=== PATIENT | female | born 1995 | race African-American/Black ===

== ENCOUNTER 2021-10-10 03:04 | Inpatient (IN) ==
[2021-10-10] MEDS ORDERED: MEPERIDINE 50 MG/1 ML VIAL IV PRN (03:34)
[2021-10-10] MEDS ORDERED: CARBOPROST TROMETHAMINE 250 MCG/ML AMP IM PRN (03:34)
[2021-10-10] MEDS ORDERED: ONDANSETRON 4 MG/2 ML VIAL IV PRN ×2 (03:34→04:56)
[2021-10-10] MEDS ORDERED: miSOPROStoL 200 MCG TABLET RECTAL PRN (03:34)
[2021-10-10] MEDS ORDERED: OXYTOCIN/LR 20 UNIT/1,000 ML BAG IV PRN (03:34)
[2021-10-10] MEDS ORDERED: TRANEXAMIC ACID 1,000 MG in SODIUM CHLORIDE 0.9% 100 ML IV PRN (03:34)
[2021-10-10] MEDS ORDERED: METHYLERGONOVINE 0.2 MG/1 ML AMP IM PRN (03:34)
[2021-10-10] MEDS ORDERED: BUTORPHANOL 2 MG/ML VIAL IV PRN (03:34)
[2021-10-10] MEDS ORDERED: OXYTOCIN/LR 20 UNIT/1,000 ML BAG IV SCH (04:00)
[2021-10-10 04:09] LABS: Basophils % 0.3 % (0.0-0.8); Eosinophils # 0.2 10*3/uL (0.0-0.87); Eosinophils % 1.6 % (0.00-10.9); Hematocrit 30.4 VOL% (35.7-47.0); Hemoglobin 9.8 GM/DL (12.0-16.0); Lymphocytes # 1.7 10*3/uL (1.4-4.0); Lymphocytes % 17.3 % (21.3-54.2); Mean Corpuscular HGB Conc 32.2 GM/DL (32-36); Mean Corpuscular Volume 87.6 FL (87-102); Mean Platelet Volume 10.2 FL (9.6-12.0); Neutrophils % 69.8 % (38.7-73.9); Platelet Count 315 T/CUMM (130-400); Red Blood Count 3.47 MC/CUMM (3.8-5.5); Red Cell Distribution Width 15.3 % (9.3-17.3); White Blood Count 9.6 T/CUMM (4-12)
[2021-10-10] MEDS: LACTATED RINGERS 1,000 ML IV SCH ×3 (04:31→08:20)
[2021-10-10 04:32] LABS: Alanine Aminotransferase 13 U/L (13-56); Albumin 2.2 G/DL (3.4-5.0); Alkaline Phosphatase 134 U/L (45-117); Aspartate Amino Transferase 12 U/L (0-37); Bilirubin,Total < 0.39 MG/DL (0.20-1.00); Blood Urea Nitrogen 6 MG/DL (7-18); Calcium 9.4 MG/DL (8.5-10.1); Carbon Dioxide 24 MMOL/L (21-32); Chloride 109 MMOL/L (98-107); Glucose 90 MG/DL (74-106); Osmolality,Calculated 276.4 MOS/KG (273-304); Potassium 4.1 MMOL/L (3.5-5.1); Sodium 140 MMOL/L (136-145); Total Protein 5.9 G/DL (6.4-8.2)
[2021-10-10] MEDS: CLINDAMYCIN INJ 900 MG/50 ML PREMIX IV SCH ×2 (04:32→10:00)
[2021-10-10] MEDS ORDERED: diphenhydrAMINE 50 MG/1 ML VIAL IV PRN ×2 (04:56)
[2021-10-10] MEDS ORDERED: NALOXONE 0.4 MG/ML VIAL IV PRN (04:56)
[2021-10-10] MEDS ORDERED: PROMETHAZINE 25 MG/1 ML VIAL IM PRN (04:56)
[2021-10-10] MEDS ORDERED: ePHEDrine 50 MG/ML VIAL IV PRN (04:56)
[2021-10-10] MEDS ORDERED: hydrOXYzine HCL 25 MG/1 ML VIAL IM PRN (04:56)
[2021-10-10] MEDS ORDERED: FAMOTIDINE 20 MG/2 ML VIAL IV PRN (04:57)
[2021-10-10] MEDS ORDERED: CITRIC ACID/SODIUM CITRATE 30 ML UDCUP PO PRN (04:57)
[2021-10-10] MEDS ORDERED: fentaNYL 2 MCG/ROPIV 0.2% EPID 100 ML EPIDURAL SCH (05:00)
[2021-10-10 09:20] LABS: Bacteria,Urine Occasional /HPF (Few); Mucus,Urine Occasional /LPF (Occasional); RBC,Urine 2 /HPF (0-4); Squamous Epithelial Cell,Urine Occasional /HPF (0-10)
[2021-10-10 09:22] LABS: Urine Appearance Clear (Clear); Urine Color Yellow (Yellow)
[2021-10-10 09:23] LABS: Bilirubin,Urine Negative (Negative); Blood, Urine Negative (Negative); Glucose,Urine (UA) Negative (Negative); Ketones,Urine Negative (Negative); Nitrite,Urine Negative (Negative); Protein,Urine Negative (Negative); Urine Urobilinogen 0.2 eU/dL (<2.0)
[2021-10-10] MEDS ORDERED: TRANEXAMIC ACID 1,000 MG/10 ML VIAL ONE (14:54)
[2021-10-10] MEDS ORDERED: OXYTOCIN/LR 30 UNIT/1,000 ML BAG IV ONE (15:30)
[2021-10-10 16:33] LABS: Cord Arterial Blood HCO3 18.5 MMOL/L; Cord Venous Blood HCO3 20.1 MMOL/L; Cord Venous Blood PCO2 47.9 MMHG; Cord Venous Blood PO2 27.4
[2021-10-10] MEDS ORDERED: BISACODYL 10 MG SUPP RECTAL PRN (18:48)
[2021-10-10] MEDS ORDERED: oxyCODONE/ACETAMINOPHEN 5-325 MG TABLET PO PRN (18:48)
[2021-10-10] MEDS ORDERED: WITCH HAZEL PADS 100/JAR TOP PRN (18:48)
[2021-10-10] MEDS ORDERED: MEASLES/MUMPS/RUBELLA VACCINE 0.5 ML VIAL SUBCUT ONE (18:48)
[2021-10-10] MEDS ORDERED: HYDROCORTISONE 2.5% RECTAL CREAM 30 GM TUBE TOP PRN (18:48)
[2021-10-10] MEDS ORDERED: ACETAMINOPHEN 325 MG TABLET PO PRN (18:48)
[2021-10-10] MEDS ORDERED: LANOLIN 50% CREAM 0.3 OZ TUBE TOP PRN (18:48)
[2021-10-10] MEDS ORDERED: BENZOCAINE 20%/MENTHOL 0.5% SPRAY 56 GM CAN TOP PRN (18:48)
[2021-10-10] MEDS: oxyCODONE/ACETAMINOPHEN 5-325 MG TABLET PO PRN (18:55)
[2021-10-10] MEDS ORDERED: RHO(D) IMMUNE GLOBULIN 300 MCG SYRINGE IM ONE (19:30)
[2021-10-10] MEDS ORDERED: OXYTOCIN/LR 20 UNIT/1,000 ML BAG IV ONE (19:30)
[2021-10-10] MEDS ORDERED: DIPH/TET/ACEL PERT BOOSTER VACCINE 0.5 ML VIAL IM ONE (19:30)
[2021-10-10] MEDS: DOCUSATE SODIUM 100 MG CAPSULE PO SCH (21:04)
[2021-10-10] MEDS: IBUPROFEN 800 MG TABLET PO PRN (21:06)
[2021-10-11] MEDS: oxyCODONE/ACETAMINOPHEN 5-325 MG TABLET PO PRN ×3 (01:43→17:50)
[2021-10-11 06:04] LABS: Basophils % 0.2 % (0.0-0.8); Eosinophils # 0.1 10*3/uL (0.0-0.87); Hemoglobin 9.4 GM/DL (12.0-16.0); Immature Granulocytes % 0.5 %; Immature Granulocytes Absolute 0.06 #; Lymphocytes # 1.9 10*3/uL (1.4-4.0); Lymphocytes % 14.6 % (21.3-54.2); Mean Corpuscular HGB Conc 32.4 GM/DL (32-36); Mean Corpuscular Volume 88.1 FL (87-102); Monocytes # 1.1 10*3/uL (0.11-0.8); Monocytes % 8.5 % (1.7-12.7); Neutrophils % 75.2 % (38.7-73.9); Platelet Count 264 T/CUMM (130-400); Red Blood Count 3.29 MC/CUMM (3.8-5.5); Red Cell Distribution Width 15.2 % (9.3-17.3); White Blood Count 12.8 T/CUMM (4-12)
[2021-10-11] MEDS: IBUPROFEN 800 MG TABLET PO PRN ×3 (06:41→21:33)
[2021-10-11] MEDS: DOCUSATE SODIUM 100 MG CAPSULE PO SCH ×2 (09:32→21:27)
[2021-10-11] MEDS ORDERED: ALUMINUM/MAGNES/SIMETH MAX STR 30 ML UDCUP PO PRN (19:21)
[2021-10-12] MEDS: oxyCODONE/ACETAMINOPHEN 5-325 MG TABLET PO PRN (00:12)
[2021-10-12] MEDS ORDERED: FAMOTIDINE 20 MG TABLET PO ONE (00:14)
[2021-10-12] MEDS ORDERED: MAGNESIUM CITRATE 300 ML BOTTLE PO ONE (00:14)
[2021-10-12 07:22] VITALS: BP 113/58
[2021-10-12] MEDS: IBUPROFEN 800 MG TABLET PO PRN (08:04)
[2021-10-12] MEDS ORDERED: oxyCODONE/ACETAMINOPHEN 5-325 MG TABLET PO ONE (12:10)
[2021-10-12] MEDS: DOCUSATE SODIUM 100 MG CAPSULE PO SCH (12:38)
== END 2021-10-12 14:05 | disposition home or self-care (01) | DRG 560 ==
LOC: N.LD 03:04 → N.OB 18:49
PROVIDERS: ADMIT Obstetrics & Gynecology; ATTEND Obstetrics & Gynecology